=== PATIENT | male | born 1970 | race Caucasian/White ===

== ENCOUNTER 2018-07-21 15:49 | Emergency (ER) | payer BC ==
[2018-07-21 17:09] VITALS: BP 145/86
[2018-07-21] MEDS ORDERED: Fluorescein Sodium TOPICAL* 1 MG TEST STRIP OPHTHALMIC ONE (17:25)
[2018-07-21] MEDS ORDERED: Tetracaine 0.5% OPTH.SOL 15ML* BTL LEFT EYE ONE (17:25)
[2018-07-21] MEDS ORDERED: Tetracaine 0.5% OPTH.SOL 4 ML* 1 DROP BTL ONE (17:28)
--- NOTE | 2018-07-21 17:41 | UC ---
Eye Complaint HPI - HPI Summary HPI Summary: Patient was working with [employer] and he felt like he may have a piece in his left eye couple days ago, that resolved after approximately one day but today he feels like he still has a foreign body sensation present. This morning he had some crusty drainage on awakening. - History of Current Complaint Chief Complaint: UCEye Stated Complaint: FOREIGN BODY LEFT EYE Time Seen by Provider: 07/21/18 17:00 Hx Obtained From: Patient Onset/Duration: Gradual Onset - Patient was working with [employer] and he had some on his hat when he takes had off and fell into his left eye. Timing: Intermittent Episode Lasting - Intimately patient feels like there is foreign body sensation present Severity Initially: Mild Severity Currently: Mild Pain Intensity: 5 Location of Injury: Eye Lid (upper) - Patient feels a foreign body might be up underneath the upper eyelid. Character: Foreign Body Sensation Aggravating Factor(s): Nothing Alleviating Factor(s): Nothing Associated Signs And Symptoms: Positive: Drainage (Purulent) - Risk Factors Penetrating Injury Risk Factor: Negative Globe Rupture Risk Factors: Negative Acute Glaucoma Risk Factors: Negative Optic Artery Occlusion Risk Factors: Negative - Allergies/Home Medications Allergies/Adverse Reactions: Allergies Allergy/AdvReac Type Severity Reaction Status Date / Time No Known Allergies Allergy Verified 07/21/18 17:07 Home Medications: Home Medications Vitamin THERAPEUTIC TAB* [Theragran TAB*] 1 tab PO DAILY 07/21/18 [History Confirmed 07/21/18] PMH/Surg Hx/FS Hx/Imm Hx Previously Healthy: Yes - Surgical History Surgical History: None - Family History Known Family History: Positive: Non-Contributory - Social History Alcohol Use: Rare Substance Use Type: None Smoking Status (MU): Former Smoker When Did the Patient Quit Smoking/Using Tobacco: ~1998 - Immunization History Most Recent Tetanus Shot: 2017 Review of Systems All Other Systems Reviewed And Are Negative: Yes Eyes: Positive: Drainage - Aloe purulent drainage. Feeling of foreign body sensation underneath the left upper eyelid, Eye Redness Is Patient Immunocompromised?: No Physical Exam Triage Information Reviewed: Yes Appearance: Well-Appearing, No Pain Distress, Well-Nourished Vital Signs: Initial Vital Signs Temp 97.8 F 07/21/18 17:03 Pulse 73 07/21/18 17:03 Resp 18 07/21/18 17:03 BP 145/86 07/21/18 17:03 Pulse Ox 97 07/21/18 17:03 Vital Signs Reviewed: Yes Eyes: Positive: Conjunctiva Inflamed, Discharge - Yellow purulent drainage Psychological Exam: Normal Eye Complaint Course/Dx - Course Course Of Treatment: Tetracaine was instilled into the left eye, no foreign body was noted, the eyelid was everted with no foreign body noted. Fluorescein was then instilled and there is a small corneal abrasion to the lateral portion of the cornea. Globe is intact. At this time because of purulent drainage I'm also going to treat him with tobramycin ophthalmic drops 1 drop in the left eye every 4 hours as well as wait for one week. He is to follow-up with an cotton chopper if he continues to feel there is a foreign body sensation however I think what he is feeling is the corneal abrasion. It is agreeable to this plan of action. - Differential Dx/Diagnosis Provider Diagnosis: Corneal abrasion, Left conjunctivitis Discharge - Sign-Out/Discharge Documenting (check all that apply): Patient Departure All imaging exams completed and their final reports reviewed: No Studies - Discharge Plan Condition: Good Disposition: HOME Prescriptions: Tobramycin 0.3% OPHTH.GIDEON* 1 drop LEFT EYE Q4H #1 btl Patient Education Materials: Corneal Abrasion (DC) Referrals: Elizabeth Mathis MD [Primary Care Provider] - Additional Instructions: Good handwashing. Definite follow-up with an cotton chopper in the next one or 2 days if you continue to feel like you have foreign body sensation in your left eye. Tylenol for pain. - Billing Disposition and Condition Condition: GOOD Disposition: Home - Attestation Statements Provider Attestation: Per institutional requirements, I have reviewed the chart, however, I was not consulted specifically or made aware of this patient by the midlevel provider. I did not personally evaluate, interact with , or disposition this patient.
== END 2018-07-21 17:45 | disposition home or self-care (01) ==
LOC: UCCORT 15:49
DX: S05.02XA Injury of conjunctiva and corneal abrasion without foreign body, left eye, initial encounter (principal); H10.9 Unspecified conjunctivitis; Z87.891 Personal history of nicotine dependence; X58.XXXA Exposure to other specified factors, initial encounter; Y92.9 Unspecified place or not applicable
CPT/HCPCS: 99202; A9270-GY; G0463